=== PATIENT | male | born 1975 | race Caucasian/White ===

== ENCOUNTER 2022-03-23 01:54 | Day surgery (SDC) | payer OTHER, SELFPAY ==
[2022-03-11 08:29] VITALS: BMI 25.1
[2022-03-23 10:38] VITALS: BP 144/75; PULSE 88; RESP 18; TEMP 35.8; O2SAT 99
--- NOTE | 2022-03-23 10:55 | PM.HPGS ---
History of Present Illness History of Present Illness Consent: Risks, benefits, and alternatives have been discussed and questions answered. Patient agrees to proceed with procedure. Chief complaint: neoplasm screening Narrative: Arian Perla is a 46 year old male here for first screening colonoscopy Review of Systems Constitutional: Constitutional: Denies headache(s) and Denies weakness Eyes: Eyes: Denies blurry vision ENT: Reports Normal hearing present, Denies headache(s) and Denies neck pain Cardiovascular: Cardiovascular: Denies chest pain and Denies dyspnea Respiratory: Respiratory: Denies dyspnea Gastrointestinal: Gastrointestinal: Reports no additional gastrointestinal complaints Genitourinary: Genitourinary: Denies dysuria Musculoskeletal: Musculoskeletal: Denies neck pain Integumentary/Breasts: Skin/Breast: Denies dry skin Neurologic: Reports Normal hearing present, Denies headache(s) and Denies weakness Psychiatric: Psychiatric: Denies anxiety Endocrine: Endocrine: Denies change in body appearance Hematologic/Lymphatic: Hematologic/Lymphatic: Denies easy bleeding Allergic/Immunologic: Allergic/Immunologic: Denies urticaria PMF Past Medical History Medical History (Updated 03/23/22 @ 10:55 by Forrest Darling MD) Colon cancer screening Surgical History Surgical History History of surgery on left wrist cyst removal Family History Family History Father Heart disease Mother Heart disease Social History Social History Smoking packs per day: 0.5 Smoking cigarettes per day: 10.0 Smoking status: Current every day smoker Tobacco type: e-cigarettes/vaping Second hand tobacco smoke exposure: No Alcohol intake: never Substance use: never Substance use type: does not use Living arrangements: with family Gender identity (if verbalized by the patient): Male Sexual Orientation (if Verbalized by the Patient): Straight or Heterosexual Spiritual care concerns: No Meds Home Medications and Allergies Home Medications Medication Instructions Recorded Confirmed Type No Home Medications 01/10/22 03/23/22 History Allergies Allergy/AdvReac Type Severity Reaction Status Date / Time No Known Allergies Allergy Verified 03/23/22 10:37 Vital Signs Vital Signs - 24 hr 03/23/22 10:38 Temperature 96.5 F L Pulse Rate 88 Respiratory Rate 18 Blood Pressure 144/75 H Pulse Oximetry 99 Oxygen Delivery Room Air Exam Const: General: comfortable and no acute distress HENMT: Face/Nose/Sinus: Normal nares present Eyes: General: appearance normal, both eyes and all related structures Neck: Neck: no JVD Resp: Auscultation: clear to auscultation bilaterally Cardio: Rate: regular rate Rhythm: regular rhythm GI: Inspection: non-distended GI Palp: Yes Soft to palpation Skin: General skin exam: normal color Neuro: General: gait normal Speech: normal speech Extrem: General: normal to inspection Psych: Mental Status: mental status grossly normal Assessment and Plan Assessment and plan (1) Colon cancer screening: Code(s): Z12.11 - Encounter for screening for malignant neoplasm of colon Status: Acute Assessment and Plan: colonoscopy
--- NOTE | 2022-03-23 11:11 | SUR.PREOP ---
Pt brought back to pre-op room. Admission assessment started. Vital signs obtained. Consent signed. At time to start IV pt reported anxiety with having the procedure. Pt discussed procedure with Dr Lara. Pt discussed anesthesia with Dr Quan. After discussion with pt elected to leave without completing procedure.
== END 2022-03-23 11:14 | disposition home or self-care (01) ==
PROVIDERS: PCP Family Medicine; Visit Provider Internal Medicine Gastroenterology
DX: Z12.11 Encounter for screening for malignant neoplasm of colon (principal); Z53.29 Procedure and treatment not carried out because of patient's decision for other reasons; F17.290 Nicotine dependence, other tobacco product, uncomplicated
CPT/HCPCS: 99211; 99212; G0463

== ENCOUNTER 2022-09-20 12:22 | Outpatient (CLI) | payer OTHER, SELFPAY ==
--- NOTE | ~2022-09-20 | XR_ITS ---
XR ribs LT 2V DATE: 09/20/2022 12:52 INDICATION: Lower left lateral rib pain TECHNIQUE: 5 views COMPARISON: None FINDINGS: There is a recent linear subtle nondisplaced fracture of the posterolateral aspect of the l eft 10th rib. No other rib fracture or bone destruction is noted. Left lung appears clear. No pleural effusion or p ulmonary vascular congestion or pneumothorax. IMPRESSION: Nondisplaced linear recent posterolateral left 10th rib fracture Reviewed, dictated and finalized at location L.
== END 2022-09-20 12:23 | disposition home or self-care (01) ==
PROVIDERS: PCP Family Medicine; Visit Provider Family Medicine
DX: R07.81 Pleurodynia (principal); S22.32XA Fracture of one rib, left side, initial encounter for closed fracture; X58.XXXA Exposure to other specified factors, initial encounter
CPT/HCPCS: 71100

== ENCOUNTER 2024-07-12 15:54 | Outpatient (CLI) | payer OTHER, SELFPAY ==
--- NOTE | ~2024-07-12 | XR_ITS ---
3 VIEWS LUMBAR SPINE Ordering provider: Arian Germain MD History: . M54.50 - Low back pain, unspecified . Comparison: None. FINDINGS: VERTEBRAL BODIES:An attempt of lumbarization of S1 is noted. No visible fracture or subluxation. Mil d dextroscoliosis. Degenerative changes of the spine. DISK SPACES: Narrowing of the disc L4-L5 and L5-S1. SOFT TISSUES: Normal. IMPRESSION: No acute osseous abnormality lumbar spine. Multilevel degenerative disc disease. Reviewed, dictated and finalized at location A.
--- OUTSIDE RECORDS SUMMARY | 2024-07-12 15:57 | XMS_ITS | Clinical Summary ---
Author Organization [facility] Address [facility] [place] [address] Care Team Providers Care Lifeline Representatives Name Role Phone Unavailable Primary Care Provider Unavailabl e Source Comments [facility],non-owned Affiliates and Associated Physician Practices is amultiple site organization consisting of ambulatory clinics and hospital sitesin [place], [place], [place] and [place]. This disclosure is being madepursuant to the Care Everywhere program and may not contain all information available regarding this patient. Last updated 17.[facility] [employer] Allergies No known active allergies Social History Tobacco Use Types Packs/Day Years Used Date Smoking Tobacco: Never Smokeless Tobacco: Never Tobacco Cessation:Counseling Given: Not Answered Alcohol Use Standard Drinks/Week Comments Not Currently 0 (1 standard drink = 0.6 oz pur e alcohol) Sex and Gender Information Value Date Recorded Sex Assigned at Not on file Legal Sex Male 7:14 AM CDT Gender Identity Not on file Sexual Orientation Not on file Last Filed Vital Signs Vital Sign Reading Time Taken Comments Blood Pressure 142/80 08/23/2022 10:34 AM CDT Pulse 102 08/23/2022 10:34 AM CDT Temperature 36.6 C (97.8 F) 08/23/2022 10:34 AM CDT Respiratory Rate 18 08/23/2022 10:34 AM CDT Oxygen Saturation 97% 08/23/2022 10:34 AM CDT Inhaled Oxygen Concentration - - Weight 75.3 kg (166 lb) 08/23/2022 8:10 AM CDT Height 180.3 cm (5' 11 ) 08/23/2022 8:10 AM CDT Body Mass Index 23.15 08/23/2022 8:10 AM CDT Plan of Treatment Health Maintenance Due Date Last Done Comments COLOGUARD (AGES 45-75) - COL ON CA SCREENING 1974 COLON MONITORING 1974 COLONOSCOPY - COLON CA SCREENING 1974 CT COLONOGRAPHY - COLON CA SCREENING 1974 Colorectal Cancer Screening 1974 FIT - COLON CA SCREENING 1974 FLEX SIG - COLON CA SCREENING 1974 LIPID TESTING 1974 HIV SCREENING 1989 HEPATITIS C SCREENING 04/12/1992 DTAP/TDAP/TD VACCINES (1 - Tdap) 1993 HEPATITIS B VACCINE (1 of 3 - 19+ 3-dose series) 1993 COVID-19 VACCINE (1 - 2023-2 5 season) 2023 DEPRESSION SCREENING 03/06/2024 PNEUMOCOCCAL VACCINE 50+ (1 of 1 - PCV) 2024 ZOSTER VACCINE (1 of 2) 2024 INFLUENZA VACCINE (Season Ended) 2024 HIB VACCINE Aged Out No longer eligi ble based on patient's age to complete this topic HPV VACCINE Aged Out No longer eligi ble based on patient's age to complete this topic MENINGOCOCCAL (Group B) VACC INE SHARED DECISION-MAKING Aged Out No longer eligibl e based on patient's age to complete this topic MENINGOCOCCAL GROUPS A/C/Y/W VACCINE Aged Out No longer eligible b ased on patient's age to complete this topic
--- OUTSIDE RECORDS SUMMARY | 2024-07-12 15:57 | XMS_ITS | Continuity of Care Document ---
Author Organization [facility] Address [address] [place] [address] Phone Care Team Providers Care Parts Clerk Plant Maintenance Name Role Phone Zi Garcia MD Unavailable Unavailable Allergies, Adverse Reactions, Alerts Substance Reaction Status Criticality No Known Allergies Active No Inform ation Medications Medication Instructions Dosage Effective Dates (start - stop) Status Comments No Drug Therapy Prescribed Procedures Procedure Date PREV VISIT, [facility], AGE 40-64 OFFICE/OUTPATIENT VISIT, [facility] PREV VISIT, [facility], AGE 40-64 Advance Directives Directive Yes / No Effective Date File Name No Information Encounters Encounter Description Practice Location Reason(s) For Visit Diagnoses Date Provider Providers Copied on Encounter PREV VISIT, [facility], AGE 40-64 [facility], [address] [place], [id number], tel:[phone] [facility] PHysical (chief complaint) Encounter for general adult medical exam w abnormal findingsEncntr for general adult medical exam w/o abnormal findings 6 Jose Pinon. [address] [facility] [place], [id number] , [place]. tel:[phone] Referring Provider: Zi Garcia, [address], [place], [id number]. tel:[phone] OFFICE/OUTPAT IENT VISIT, [facility], [address] [place] [address] [place], [id number], [place] tel:[phone] [facility] finger fx (chief complaint) Finger injuryClosed finger fracture of middle and proximal phalanx 5 Garcia Zi. [address], [address], [place], [place], [address] , [place]. tel:[phone] Referring Provider: Zi Garcia, [address], [place], [place], [id number]. tel:[phone] PREV VISIT, NEW, AGE 40-64 [facility], [address], [place], [place], [id number], tel:[phone] [facility] PHysical (chief complaint) Routine Medical ExamRoutine Medical Exam 5 Jose Pinon. [address], [place], [place], [address] , [place]. tel:[phone] Family History Family Member Type Diagnosis Age At Onset Sister Problem (finding) Alive and well Father Problem (finding) Coronary artery disease 64 Mother Problem (finding) Coronary artery disease Payers Payer name Insurance type Covered libertarian ID Authoriza tion(s) No Information Social History Type Description Quantity Date Captured Comments Alcohol Use Details No Caffeine Use Details Unknown Tobacco Use Status Cigarette smoker Smoking Status Current some day smoker Non-Smoking Tobacco Use Details Smokeless: No Details Available Smokeless: No Details Available Sex Male Vital Signs Date / Time: Height Weight BMI Pulse Rate Blood Pressure Temperature Respiratory Rate Body Surface Area Head Circumference BMI percentile Pulse Ox Inhaled Ox 2:13 PM 182.88 cm 163.00 lbs 22.1 1 kg/m eter (2) 67 /min 121/74 mm[Hg] 98.7 F 18 /min Chief Complaint And Reason For Visit From encounter dated '11/12/2015 13:00'. PHysical (chief complaint). Description: Pt needs annual physical. Pt wants check up. Pt feels well. Pt denies any ache or pain. Pt never did the lab work from last year. Pt denie any chest pain Plan Of Treatment Date Type Action Status Goal Tobacco cessation counseling completed Referral Ordered: Plastic Surgery (related to Closed finger fracture of middle and proximal phalanx) ordered Referral Ordered: Referrals: Plastic Surgery ordered History Of Present Illness Encounter Date Complaint History Of Prese nt Illness PHysical Pt needs annual physical. Pt wants check up. Pt feels well. Pt denies any ache or pain. Pt never did the lab work from last year. Pt denie any chest pain finger fx Pt was jumping o n [place] and he fell and his right 5th finger was outstretched and he suffered a chip fx right PIP joint of the 5th finger. Pt went to ER on 07/19 and he has been wear a finger splint since then. Pt states that he does not have any pain except that he has difficulty bending right PIP joint. Pt denies any numbness Medications Administered Medication Instructions Dosage Effective Dates (start - stop) Status Comments No Drug Therapy Prescribed Instructions Date Instruction Additional Infor mation No Information Assessments Type Assessment Date assessment Encounter for general adult medi ilene exam w abnormal findings assessment Encntr for general adult medical exam w/o abnormal findings Mental Status Date Cognitive Assessment Orientation - Dupont ed to time, place, person, situation.
--- OUTSIDE RECORDS SUMMARY | 2024-07-12 15:57 | XMS_ITS | Continuity of Care Document ---
Author Name [facility] Organization [facility] Care Team Providers Care Cmm Inspector Name Role Phone [facility] Unavailable Unavailable Social History Combined list of available smoking, tobacco, and other social history from [facility] Defense and [facility] facilities. Social History Type Response Date Comment Sourc e This section is an empty social history section. [facility]
== END 2024-07-12 15:55 | disposition home or self-care (01) ==
LOC: ANHLAB 15:56
PROVIDERS: PCP Family Medicine; Visit Provider Family Medicine
DX: M51.369 Other intervertebral disc degeneration, lumbar region without mention of lumbar back pain or lower extremity pain (principal); M51.379 Other intervertebral disc degeneration, lumbosacral region without mention of lumbar back pain or lower extremity pain; G89.29 Other chronic pain
CPT/HCPCS: 72100